=== PATIENT | female | born 1970 | race Caucasian/White ===

== ENCOUNTER 2016-07-08 19:40 | Emergency (ER) | payer SELFPAY | END 2016-07-08 23:54 | disposition home or self-care (01) | LOC: ER 19:40 | DX: M54.5 Low back pain (principal); B34.9 Viral infection, unspecified; F41.9 Anxiety disorder, unspecified; F32.9 Major depressive disorder, single episode, unspecified; E78.5 Hyperlipidemia, unspecified; Z90.710 Acquired absence of both cervix and uterus; Z79.899 Other long term (current) drug therapy; Z88.2 Allergy status to sulfonamides | CPT/HCPCS: 36415; 87502; 96374; 96375; Q9967 ==